=== PATIENT | male | born 1950 | race Caucasian/White ===

== ENCOUNTER → 2025-02-01 10:16 | Outpatient (REF) | payer OTHER, SELFPAY | LOC: HWRAD 10:16 | PROVIDERS: ATTENDING PHYSICIAN Family Medicine | DX: Z00.01 Encounter for general adult medical examination with abnormal findings (principal); C61 Malignant neoplasm of prostate; I10 Essential (primary) hypertension; M35.3 Polymyalgia rheumatica; M25.552 Pain in left hip; M54.32 Sciatica, left side | CPT/HCPCS: 72110; 73522 ==

== ENCOUNTER → 2025-05-22 06:46 | Outpatient (REF) | payer OTHER, SELFPAY | LOC: PAVMRI 06:46 | PROVIDERS: ATTENDING PHYSICIAN Internal Medicine; FAMILY PHYSICIAN Family Medicine | DX: M25.552 Pain in left hip (principal) | CPT/HCPCS: 73721 ==